=== PATIENT | female | born 1970 | race Hispanic/Latino ===

== ENCOUNTER 2018-12-02 21:12 | Emergency (ER) | payer BC ==
[2018-12-02] MEDS ORDERED: ACETAMINOPHEN EXTRA STRENGTH 500 MG TABLET ONE (21:46)
== END 2018-12-02 22:56 | disposition home or self-care (01) ==
LOC: EDH 21:12
DX: M79.89 Other specified soft tissue disorders (principal); M79.661 Pain in right lower leg; E03.9 Hypothyroidism, unspecified; I10 Essential (primary) hypertension; Z98.890 Other specified postprocedural states
CPT/HCPCS: 73590; 93971